=== PATIENT | male | born 1970 | race Caucasian/White ===

== ENCOUNTER 2020-07-21 10:12 | Outpatient (RCR) | payer BC, SELFPAY ==
[2020-07-21] MEDS: COVID-19 VACC, MRNA(PFIZER)/PF 30 MCG/0.3 ML SYRINGE IM (07:03)
[2020-08-11] MEDS: COVID-19 VACC, MRNA(PFIZER)/PF 30 MCG/0.3 ML SYRINGE IM (07:04)
== END 2020-07-21 23:59 ==
LOC: IMMUN 10:12
PROVIDERS: PCP Family Medicine; Visit Provider Family Medicine
DX: Z23 Encounter for immunization (principal)
CPT/HCPCS: 0001A; 0002A; 91300

== ENCOUNTER 2020-10-23 12:58 | Emergency (ER) | payer BC, SELFPAY ==
[2020-10-23 13:00] VITALS: BP 182/96; PULSE 101; RESP 18; TEMP 36.8; O2SAT 100
[2020-10-23 13:11] LABS: Bedside Glucose 140 mg/dL (70-110)
--- NOTE | 2020-10-23 13:27 | EKG12_ITS ---
Test Reason : Blood Pressure : / mmHG Vent. Rate : 098 BPM Atrial Rate : 098 BPM P-R Int : 140 ms QRS Dur : 086 ms QT Int : 362 ms P-R-T Axes : 058 075 -01 degrees QTc Int : 462 ms Normal sinus rhythm Inferior-posterior infarct , age undetermined Abnormal ECG Confirmed by FRANCINE ROMERO, REFUGIO ([id number]), script editor VALERIA BILLS ([id number]) on 10/24/2020 11:22:16 AM Referred By: SIDDHARTH Confirmed By:REFUGIO ESCAMILLA MD
--- NOTE | 2020-10-23 13:27 | RAD_ITS ---
STUDY: X-RAY CHEST REASON FOR EXAM: Male, 50 years old. Chest pain TECHNIQUE: Single frontal view of the chest. COMPARISON: None. FINDINGS: The lungs are clear and expanded. There is no demonstrated pleural abnormality. Normal size heart. Normal mediastinum and darrick. Normal visualized pulmonary arteries. Normal visualized aortic arch and descending thoracic aorta. Normal visualized thoracic spine. Normal visualized ribs, clavicles, and shoulders. There is no demonstrated abnormality of the visualized soft tissue structures of the upper abdomen. RAD/Chest 1 View (Portable) IMPRESSION: Normal x-ray examination of the chest. Electronically Signed: Sandrita Gonzalez MD at 14:37 EDT Tel , Service support ,
--- NOTE | 2020-10-23 13:28 | EDS_ITS ---
HPI History of Present Illness Chief Complaint: Neuro S/Sx Informant: patient and PCP Onset/Context/Timing Onset: Today Context: Sudden Onset Current Severity: Mild Maximum Severity: Moderate Narrative Narrative: Patient was sitting at lunch with his PCP today, when he suddenly felt his heart racing, he can feel it in his neck, as well as a little shortness of breath and lightheadedness, followed by tingling all over his body. Denies near syncopal or syncope. No chest pain although he has had mild intermittent left central chest discomfort off and on for the past week, it has lasted minutes at a time. He had that discomfort 5 or 6 years ago or so, when he lived in [place] and followed up with a specialist and had some heart testing that was negative. He denies any recent illness or long trips/travel, hospitalization, or surgery. No history of DVT or PE. He is adopted and family history is unknown. [facility] Medical History Hypertension Home Medications lisinopril 10 mg PO DAILY 10/23/20 [History Last Taken Unknown] Allergy/AdvReac Type Severity Reaction Status Date / Time No Known Allergies Allergy Verified 10/23/20 13:04 adopted Surgical History (Updated 10/23/20 @ 13:04 by Kristi Jain) H/O eye surgery Social History Smoking Status: Never smoker ROS ROS ED Constitutional Constitutional ED: Denies chills or fever(s) Eyes Eyes: Denies change in vision or diplopia ENT ENT ED: Denies rhinorrhea or sore throat Cardiovascular Cardiovascular: Denies chest pain or palpitations Respiratory/Chest Respiratory/Chest: Denies cough or dyspnea Gastrointestinal Gastrointestinal: Denies abdominal pain, diarrhea, nausea or vomiting Genitourinary Genitourinary ED: Denies dysuria or hematuria Musculoskeletal Musculoskeletal: Denies back pain or neck pain Integumentary Denies abscess or rash Neurologic Neurologic: Denies headache(s), paresthesias or weakness Psychiatric Psychiatric: Denies anxiety or suicidal thoughts EXAM Physical Exam Const Vital Signs: 10/23/20 13:00 10/23/20 14:32 10/23/20 15:16 Temperature 98.3 F Temperature Source Temporal Pulse Rate 101 H 92 83 Respiratory Rate 18 17 15 Blood Pressure 182/96 H 153/82 H 148/85 H Blood Pressure Mean 124 105 106 Pulse Ox 100 98 98 Oxygen Delivery Method Room Air Room Air Room Air Positive well nourished and well developed General Appearance ED: well developed and NAD HEENT Reports moist mucous membranes normocephalic and atraumatic Eyes PERRL and EOMs intact bilaterally Neck full ROM and supple Resp normal respiratory effort and clear to auscultation bilaterally Cardio regular rate, regular rhythm, S1 normal heart sound, S2 normal heart sound and no murmurs Cardio Narrative: mild tachycardia GI non-tender and non-distended Auscultation: normoactive bowel sounds Palpation: soft Back/Spine no CVA tenderness General Back: other FROM Extremity normal to inspection and no calf tenderness General Extremety ED: Negative for edema, pulses abnormal or tenderness General Extremity: Negative for edema or pulses abnormal Neuro oriented x3, CN's II-XII intact bilaterally and no sensory deficits noted Sensorium / Orientation: awake and alert Motor Exam: strength 5/5 throughout Psych mental status grossly normal and thought process normal Mood & Affect: anxious Skin no rashes or lesions noted and no wounds MDM MDM MDM Narrative Medical decision making narrative: During the patient's observation in the emergency department, he developed no recurrent symptoms and felt better with regards to his tingling all over. His work-up is negative as below, except for mild elevation of his creatinine of 1.41. His troponin and D-dimer are both negative. His EKG showed some inverted T waves inferiorly, but no acute injury pattern. Patient is very anxious, this might of explained his elevated blood pressure, or alternatively, his elevated blood pressure caused all this due to spiking. On reevaluation is 153/82, he does not need emergent treatment for that especially since he is asymptomatic. He did start his lisinopril 2 days ago, so certainly there is no failure of that at this time. I am not concerned about acute coronary syndrome here, I do not think he needs a delta troponin, he is comfortable going home and following up for an outpatient stress test which his doctor discussed with him as well, and I think it would be reasonable to get a Holter monitor for him. We do have them available, discussed with cardiology for approval, and he will follow-up. Lab Data Attestation: I reviewed the patient's lab results. Labs: Laboratory Results - last 24 hr 10/23/20 10/23/20 10/23/20 13:05 13:05 13:06 WBC 10.6 RBC 5.27 Hgb 15.5 Hct 46.9 MCV 89.0 MCH 29.4 MCHC 33.0 RDW Std Deviation 43.0 RDW Coeff of Reina 13.1 Plt Count 317 MPV 10.5 Immature Gran % (Auto) 0.500 Neut % (Auto) 70.8 H Lymph % (Auto) 21.8 [place] % (Auto) 5.7 Eos % (Auto) 0.7 Baso % (Auto) 0.5 Absolute Neuts (auto) 7.5 Absolute Lymphs (auto) 2.31 Nucleated RBC % 0 D-Dimer Quant (PE/DVT) Sodium 139 Potassium 3.5 Chloride 103 Carbon Dioxide 26.0 Anion Gap 10 BUN 22 H Creatinine 1.41 H Estim Creat Clear Calc 55.93 Est GFR (MDRD) Af Amer 68 Est GFR (MDRD) Non-Af 56 L BUN/Creatinine Ratio 15.6 Glucose 162 H Calcium 9.0 Troponin I < 0.015 POC Glucose 140 H 10/23/20 13:48 WBC RBC Hgb Hct MCV MCH MCHC RDW Std Deviation RDW Coeff of Reina Plt Count MPV Immature Gran % (Auto) Neut % (Auto) Lymph % (Auto) [place] % (Auto) Eos % (Auto) Baso % (Auto) Absolute Neuts (auto) Absolute Lymphs (auto) Nucleated RBC % D-Dimer Quant (PE/DVT) <= 0.27 Sodium Potassium Chloride Carbon Dioxide Anion Gap BUN Creatinine Estim Creat Clear Calc Est GFR (MDRD) Af Amer Est GFR (MDRD) Non-Af BUN/Creatinine Ratio Glucose Calcium Troponin I POC Glucose Radiography Chest X-Ray - ED: 1 View, Read by ED Physician, Normal and No Acute Disease Diagnostic Testing: Radiology Impression Chest X-Ray 10/23/20 13:27 IMPRESSION: Normal x-ray examination of the chest. Electronically Signed: Sandrita Gonzalez MD at 14:37 EDT Tel , Service support , EKG Initial EKG: Attestation: I personally reviewed and interpreted this EKG as follows: Interpretation: Sinus Rhythm, No Acute Injury Pattern and Inverted T-Waves (inferiorly; no ST seg deviations) Prior EKG tracings: not available for review Discharge Plan Triage Chief Complaint: Neuro S/Sx ED Provider: Jaron Lindo Dx/Rx/DC Orders Clinical Impression: Intermittent left-sided chest pain, Palpitations, Episode of hypertension Instructions: ED Chest Pain, Noncardiac, ED Palpitations Prescriptions: No Action lisinopril 10 mg Tablet 10 mg PO DAILY RF: 0 Primary Care Provider: Shadi Gutierrez Referrals: Shadi Gutierrez DO [Primary Care Provider] - Abram Ramsey MD [STAFF PHYSICIAN] - (call for follow up) Disposition Disposition: Home, self care
[2020-10-23 13:46] LABS: Absolute Lymphocyte Count 2.31 X10^3/uL (0.83-4.51); Absolute Neutrophil Count 7.5 X10^3/uL (2.0-7.7); Basophil# 0.05 X10^3/uL; Basophil% 0.5 % (0-1); Eosinophil# 0.07 X10^3/uL; Eosinophils% 0.7 % (0-5); Hematocrit 46.9 % (40-54); Hemoglobin 15.5 g/dL (13.0-16.5); Lymphocyte # 2.31 X10^3/ul (0.83-4.51); Lymphocyte % 21.8 % (19-41); Mean Corpuscular Hgb 29.4 pg (27.0-32.0); Mean Platelet Vol. 10.5 fl (6.2-12.0); Monocyte% 5.7 % (0-10); NRBC Flagged by Analyzer 0 % (0-5); Neutrophil # 7.51 X10^3/uL (2.7-7.7); Neutrophil % 70.8 % (47-70); Platelet Count 317 K/mm3 (150-450); RBC Distribution Width CV 13.1 % (11.6-14.6); Red Blood Count 5.27 M/mm3 (4.6-6.2); White Blood Count 10.6 K/mm3 (4.4-11.0)
[2020-10-23 14:01] LABS: Anion Gap 10 (5-15); BUN 22 mg/dL (7-18); BUN/Creat Ratio 15.6 RATIO (10-20); Chloride 103 mmol/L (98-107); Creatinine, Serum 1.41 mg/dL (0.70-1.30); EST Glomerular Filtration Rate 56 mL/min (>60); Est Glom Filt Rate - Afr Amer 68 mL/min (>60); Estimated Creatinine Clearance 55.93 ml/min; Glucose 162 mg/dL (74-106); Potassium 3.5 mmol/L (3.5-5.1); Sodium Level 139 mmol/L (136-145)
[2020-10-23 14:06] LABS: D-Dimer Quantitative (DVT/PE) <= 0.27 FEU/ug/m (0.27-0.49)
[2020-10-23 14:32] VITALS: BP 153/82; PULSE 92; RESP 17; O2SAT 98
[2020-10-23 15:16] VITALS: BP 148/85; PULSE 83; RESP 15; O2SAT 98
[2020-10-23 15:36] VITALS: BP 151/86; PULSE 83; RESP 18; O2SAT 96
== END 2020-10-23 15:37 | disposition home or self-care (01) ==
PROVIDERS: Emergency Provider Emergency Medicine; PCP Family Medicine
DX: R07.89 Other chest pain (principal); R00.2 Palpitations; I10 Essential (primary) hypertension; R06.00 Dyspnea, unspecified; R42 Dizziness and giddiness; R20.2 Paresthesia of skin; Z79.899 Other long term (current) drug therapy
CPT/HCPCS: 71045; 80048; 82962; 84484; 85025; 85379; 93005; 99284; A4216

== ENCOUNTER → 2020-10-23 15:19 | Outpatient (CLI) | payer BC, SELFPAY | PROVIDERS: PCP Family Medicine; Visit Provider Specialist | DX: R00.2 Palpitations (principal); R07.89 Other chest pain; I10 Essential (primary) hypertension; R06.00 Dyspnea, unspecified; R42 Dizziness and giddiness; R20.2 Paresthesia of skin; Z79.899 Other long term (current) drug therapy | CPT/HCPCS: 71045; 80048; 82962; 84484; 85025; 85379; 93005; 93225; 93226; 99284; A4216 ==

== ENCOUNTER → 2020-11-14 09:47 | Outpatient (CLI) | payer BC, SELFPAY ==
[2020-11-02 12:59] VITALS: BMI 28.7
--- NOTE | 2020-11-14 09:50 | ECHOCS_ITS ---
Reason For Study: Arrhythmia Procedure This was a 2D Doppler, Color Flow transthoracic echocardiogram. The study was technically difficult. Contrast injection was performed. Exam performed in department. Left Ventricle Normal LV size. Left ventricular systolic function is normal. The estimated ejection fraction is 65 %. No regional wall motion abnormalities noted. Right Ventricle Normal RV size. Normal systolic function. Atria Normal left atrium. Normal right atrium. Mitral Valve Normal mitral valve. Tricuspid Valve Normal tricuspid valve. Mild (1+) tricuspid valve insufficiency. Pulmonary artery systolic pressure is 34 mmHg. Aortic Valve Normal aortic valve. Pulmonic Valve Normal pulmonic valve. Great Vessels Normal aortic root. The pulmonary artery is normal size. Normal inferior vena cava. Pericardium/Pleural No pericardial effusion. Medication 22 gauge I.V. with prn adaptor inserted into right arm. Diluted definity 2ml given slow IV push to enhance endocardial definition. MMode/2D Measurements & Calculations LVIDd: 4.0 cm IVSd: 0.90 cm LA dimension: 2.5 cm LVIDs: 2.5 cm LVPWd: 1.0 cm FS: 38.2 % LAV(MOD-bp): 39.9 ml LA A4 area: 15.6 cm2 RA A4 area: 12.5 cm2 LAV(MOD-bp) Indexed: 21.0 ml/m2 LAV(MOD-sp2): 36.4 ml LAV(MOD-sp4): 42.6 ml Time Measurements MV dec time: 0.25 sec Doppler Measurements & Calculations MV E max jorge: 71.8 cm/sec Lat Peak E' Jorge: 13.3 cm/sec Med Peak E' Jorge: 7.8 cm/sec MV A max jorge: 65.6 cm/sec E/E' lat: 5.4 E/E' med: 9.2 MV E/A: 1.1 MV V2 max: 71.7 cm/sec MV P1/2t max jorge: 71.2 cm/sec Ao V2 max: 118.2 cm/sec MV max P.1 mmHg MV P1/2t: 98.1 msec Ao max P.6 mmHg MV V2 mean: 36.3 cm/sec MV dec slope: 212.5 cm/sec2 MV mean P.64 mmHg MV V2 VTI: 27.7 cm MVA(P1/2t): 2.2 cm2 LV V1 max: 99.7 cm/sec PA V2 max: 79.9 cm/sec TR max jorge: 265.4 cm/sec LV V1 max P.0 mmHg TR max P.2 mmHg ECHO/Echo Complete W/ Contrast Interpretation Summary Normal LV size. Left ventricular systolic function is normal. The estimated ejection fraction is 65 %. Pulmonary artery systolic pressure is 34 mmHg. Contrast injection was performed. Ordering Physician: Abram Ramsey Referring Physician: Abram Ramsey Performed By: Nelson Loza RCS
== END ==
PROVIDERS: PCP Family Medicine; Referring Provider Internal Medicine Cardiovascular Disease; Visit Provider Internal Medicine Cardiovascular Disease
DX: R06.02 Shortness of breath (principal)
CPT/HCPCS: 93306; Q9957; A4216; C8929; J3490

== ENCOUNTER → 2020-12-01 11:59 | Outpatient (CLI) | payer BC, SELFPAY ==
[2020-11-02 12:59] VITALS: BMI 28.7
[2020-12-01 13:03] LABS: Anion Gap 7 (5-15); BUN 20 mg/dL (7-18); BUN/Creat Ratio 15.6 RATIO (10-20); Calcium,Total 8.8 mg/dL (8.5-10.1); Chloride 105 mmol/L (98-107); Creatinine, Serum 1.28 mg/dL (0.70-1.30); EST Glomerular Filtration Rate 63 mL/min (>60); Est Glom Filt Rate - Afr Amer 76 mL/min (>60); Glucose 96 mg/dL (74-106); Potassium 4.4 mmol/L (3.5-5.1); Sodium Level 140 mmol/L (136-145)
== END ==
PROVIDERS: PCP Family Medicine; Visit Provider Internal Medicine Cardiovascular Disease
DX: I10 Essential (primary) hypertension (principal)
CPT/HCPCS: 36415; 80048

== ENCOUNTER 2020-12-14 07:43 | Emergency (ER) | payer BC, SELFPAY ==
[2020-11-02 12:59] VITALS: BMI 28.7
[2020-12-14 07:44] VITALS: BP 142/76; PULSE 89; RESP 14; TEMP 36; O2SAT 99; BMI 28.6
--- NOTE | 2020-12-14 07:56 | EKG12_ITS ---
Test Reason : DIZZINESS Blood Pressure : / mmHG Vent. Rate : 077 BPM Atrial Rate : 077 BPM P-R Int : 150 ms QRS Dur : 084 ms QT Int : 410 ms P-R-T Axes : 051 059 -02 degrees QTc Int : 463 ms Normal sinus rhythm Inferior-posterior infarct , age undetermined Abnormal ECG Confirmed by HAYLEY ROMERO, LIDIA ([id number]), industrial editor VALERIA BILLS ([id number]) on 12/16/2020 9:29:38 AM Referred By: ELLEN Confirmed By:JASON HARDY MD
--- NOTE | 2020-12-14 07:56 | CT_ITS ---
STUDY: CT BRAIN WITHOUT CONTRAST REASON FOR EXAM: Male, 50 years old. Headache and Dizziness RADIATION DOSAGE (If Supplied By Facility): CTDIvol = ( 44.99 ) mGy, DLP = ( 829.85 ) mGycm TECHNIQUE: Transaxial CT imaging of the brain was performed without administration of intravenous contrast material. Individualized dose optimization techniques were used for this CT. COMPARISON: No relevant priors. FINDINGS: Normal soft tissue structures. Normal calvarium. Normal size ventricles and extra-axial spaces for the patient''s age. Normal white matter tracts of the cerebral hemispheres. Normal basal ganglia and thalami. Normal brainstem. Normal cerebellum. There is no intracranial hemorrhage. There are no findings of an acute ischemic infarction. Normal visualized paranasal sinuses. CT/Brain/Head without Contrast IMPRESSION: Normal unenhanced CT scan of the brain. Electronically Signed: Evens Potter MD at 8:24 EDT , Service support ,
--- NOTE | 2020-12-14 07:58 | EX.ED.DYSGE1 ---
HPI History of Present Illness Chief Complaint: Dizziness Informant: patient and EMS Narrative Narrative: 50-year-old male presenting via EMS with chief complaint of dizziness. Patient states that about 10 till 7 he was sitting in his chair and turned his head to the right and then he began to feel his heart race and had a sensation of dizziness and a warm sensation on the right side of his neck. When asked what dizziness meant he states lightheaded but then states if he keeps his eyes open the room starts to spin. He had an episode of vomiting. He checked his blood pressure several times and stated that his heart rate was 113. He had not yet taken his morning medications. He reports that he called 911 and then crawled to the door to open it. He states he had more vomiting once arriving in the emergency department. Symptoms are worse with movement. He is never experienced this before. He notes generalized weakness. He endorses bilateral tinnitus. Recent nasal congestion due to allergies. He notes an occipital headache. [facility] Medical History Essential (primary) hypertension Obesity Home Medications amlodipine 5 mg tablet 5 mg PO DAILY #90 tab 11/02/20 [Rx Last Taken Unknown] metoprolol succinate 50 mg tablet,extended release 24 hr 50 mg PO DAILY #90 tab 11/02/20 [Rx Last Taken Unknown] diazepam 5 mg PO Q8 PRN #10 tab 12/14/20 [Rx Last Taken Unknown] ondansetron 4 mg PO Q6H PRN PRN #10 tab 12/14/20 [Rx Last Taken Unknown] Allergy/AdvReac Type Severity Reaction Status Date / Time No Known Allergies Allergy Verified 12/14/20 07:47 Family History Other Adopted Surgical History H/O eye surgery Social History Smoking Status: Never smoker alcohol intake: never ROS ROS ED Constitutional Constitutional ED: Denies chills or weight loss Eyes Eyes: Denies change in vision or diplopia ENT ENT ED: Reports other Details: Tinnitus ; Denies ear pain, rhinorrhea or sore throat Cardiovascular Cardiovascular: Reports palpitations and racing heartbeat; Denies chest pain or orthopnea Respiratory/Chest Respiratory/Chest: Denies cough, dyspnea or orthopnea Gastrointestinal Gastrointestinal: Reports nausea and vomiting; Denies abdominal pain or diarrhea Genitourinary Genitourinary ED: Denies dysuria, hematuria or urinary frequency Musculoskeletal Musculoskeletal: Denies arthralgias or myalgias Integumentary Denies abscess or rash Neurologic Neurologic: Reports headache(s) and other Details: Dizziness/lightheaded ; Denies weakness Psychiatric Psychiatric: Denies anxiety, depression, suicidal ideation or suicidal thoughts Endocrine Endocrinology: Denies polydipsia, polyphagia or polyuria Allergic/Immunologic Allergic/Immunologic ED: Denies mouth swelling, tongue swelling or urticaria EXAM Physical Exam Const Vital Signs: 12/14/20 07:44 12/14/20 07:49 12/14/20 09:00 Temperature 96.8 F L Temperature Source Temporal Pulse Rate 89 75 Respiratory Rate 14 18 Respiratory Effort Normal Non-Labored Respiratory Pattern Normal Blood Pressure 142/76 H 160/93 H Blood Pressure Mean 98 115 Pulse Ox 99 97 Oxygen Delivery Method Room Air Room Air 12/14/20 10:10 Temperature Temperature Source Pulse Rate 69 Respiratory Rate 14 Respiratory Effort Respiratory Pattern Blood Pressure 136/82 H Blood Pressure Mean 100 Pulse Ox 97 Oxygen Delivery Method Room Air Positive well nourished and well developed General Appearance ED: well developed HEENT Reports normocephalic, head/scalp atraumatic and moist mucous membranes HEENT Narrative: No nystagmus is noted. Eyes PERRL and EOMs intact bilaterally Neck no lymphadenopathy, supple and no JVD Resp normal respiratory effort and clear to auscultation bilaterally Cardio regular rate, regular rhythm and no murmurs GI normal to inspection, nondistended, normoactive bowel sounds and non-tender Palpation: soft Back/Spine no CVA tenderness and normal ROM Extremity normal to inspection General Extremety ED: Negative for edema General Extremity: Negative for edema Neuro oriented x3, CN's II-XII intact bilaterally and no sensory deficits noted Neuro Narrative: Patient symptoms are worse when he keeps his eyes open. They are worse when he turns his head in all directions. Sensorium / Orientation: alert Motor Exam: strength 5/5 throughout Psych mental status grossly normal Mood & Affect: Negative for depressed or tearful Skin no rashes or lesions noted and no wounds MDM MDM MDM Narrative Medical decision making narrative: Patient received IV fluids Zofran and Valium. Basic blood work EKG and head CT was obtained. CT was negative. Patient is doing much better. He still notes the sensation of warmth and increased heart rate and dizziness when he turns his head to the right. Pain this is most likely peripheral vertigo. When he does turn his head to the right his heart rate stays in the 60s in the 70s. I'll write the patient to have Valium. I will discuss Lab Data Labs: Laboratory Results - last 24 hr 12/14/20 12/14/20 07:50 07:50 WBC 12.3 H RBC 5.01 Hgb 14.7 Hct 44.3 MCV 88.4 MCH 29.3 MCHC 33.2 RDW Std Deviation 41.1 RDW Coeff of Reina 12.6 Plt Count 330 MPV 10.6 Immature Gran % (Auto) 0.300 Neut % (Auto) 54.9 Lymph % (Auto) 33.6 [place] % (Auto) 8.3 Eos % (Auto) 2.6 Baso % (Auto) 0.3 Absolute Neuts (auto) 6.7 Absolute Lymphs (auto) 4.12 Nucleated RBC % 0 Sodium 137 Potassium 3.7 Chloride 103 Carbon Dioxide 23.0 Anion Gap 11 BUN 24 H Creatinine 1.30 Estim Creat Clear Calc 60.66 Est GFR (MDRD) Af Amer 75 Est GFR (MDRD) Non-Af 62 BUN/Creatinine Ratio 18.5 Glucose 151 H Calcium 9.1 Troponin I High Sens 7.1 Radiography Diagnostic Testing: Radiology Impression Brain CT 12/14/20 07:56 IMPRESSION: Normal unenhanced CT scan of the brain. Electronically Signed: Evens Potter MD at 8:24 EDT , Service support , EKG Initial EKG: Attestation: I personally reviewed and interpreted this EKG as follows: Comments: Normal sinus rhythm with a ventricular rate of 77 bpm. No concerning features of ACS or ectopy. Discharge Plan Triage Chief Complaint: Dizziness ED Provider: Kurt Nash Dx/Rx/DC Orders Clinical Impression: Vertigo Instructions: ED BPV Vertigo Prescriptions: New ondansetron [ondansetron] 4 MG tablet 4 mg PO Q6H PRN PRN (Reason: Nausea) Qty: 10 RF: 0 diazepam [diazepam] 5 MG tablet 5 mg PO Q8 PRN (Reason: Vertigo) Qty: 10 RF: 0 No Action amlodipine 5 mg tablet 5 mg PO DAILY Qty: 90 RF: 3 metoprolol succinate [Toprol XL] 50 mg tablet extended release 24 hr 50 mg PO DAILY Qty: 90 RF: 3 Primary Care Provider: Shadi Gutierrez Referrals: Shadi Gutierrez DO [Primary Care Provider] - 3-5 Days Disposition Disposition: Home, Self Care
[2020-12-14 08:04] LABS: Absolute Lymphocyte Count 4.12 X10^3/uL (0.83-4.51); Absolute Neutrophil Count 6.7 X10^3/uL (2.0-7.7); Basophil# 0.04 X10^3/uL; Basophil% 0.3 % (0-1); Eosinophil# 0.32 X10^3/uL; Eosinophils% 2.6 % (0-5); Hematocrit 44.3 % (40-54); Hemoglobin 14.7 g/dL (13.0-16.5); Lymphocyte # 4.12 X10^3/ul (0.83-4.51); Lymphocyte % 33.6 % (19-41); Mean Corp Hgb Conc 33.2 g/dL (32-36); Mean Corpuscular Hgb 29.3 pg (27.0-32.0); Mean Corpuscular Volume 88.4 fL (80-94); Mean Platelet Vol. 10.6 fl (6.2-12.0); Monocyte# 1.02 X10^3/uL; Monocyte% 8.3 % (0-10); NRBC Flagged by Analyzer 0 % (0-5); Neutrophil # 6.74 X10^3/uL (2.7-7.7); Neutrophil % 54.9 % (47-70); Platelet Count 330 K/mm3 (150-450); RBC Distribution Width CV 12.6 % (11.6-14.6); RBC Distribution Width SD 41.1 fl (35.1-43.9); Red Blood Count 5.01 M/mm3 (4.6-6.2); White Blood Count 12.3 K/mm3 (4.4-11.0)
[2020-12-14] MEDS: diazePAM 5 MG Tablet PO (08:07)
[2020-12-14] MEDS: Ondansetron 4 MG/2 ML Vial IV (08:08)
[2020-12-14] MEDS: 0.9% Normal Saline 1,000 ML 1000 ML IV (08:08)
[2020-12-14 08:22] LABS: Anion Gap 11 (5-15); BUN 24 mg/dL (7-18); BUN/Creat Ratio 18.5 RATIO (10-20); Calcium,Total 9.1 mg/dL (8.5-10.1); Chloride 103 mmol/L (98-107); EST Glomerular Filtration Rate 62 mL/min (>60); Est Glom Filt Rate - Afr Amer 75 mL/min (>60); Estimated Creatinine Clearance 60.66 ml/min; Glucose 151 mg/dL (74-106); Potassium 3.7 mmol/L (3.5-5.1); Sodium Level 137 mmol/L (136-145); Troponin-I HS 7.1 pg/mL (3.0-78.5)
[2020-12-14 09:00] VITALS: BP 160/93; PULSE 75; RESP 18; O2SAT 97
[2020-12-14 10:10] VITALS: BP 136/82; PULSE 69; RESP 14; O2SAT 97
[2020-12-14 10:33] VITALS: BP 135/74; PULSE 72; RESP 16; O2SAT 97
== END 2020-12-14 10:34 | disposition home or self-care (01) ==
PROVIDERS: Emergency Provider Emergency Medicine; PCP Family Medicine
DX: R42 Dizziness and giddiness (principal); R51.9 Headache, unspecified; I10 Essential (primary) hypertension; Z79.899 Other long term (current) drug therapy
CPT/HCPCS: 70450; 80048; 84484; 85025; 93005; 96361; 96374; 99285; J7030; A4216; J2405

== ENCOUNTER → 2021-03-20 11:01 | Outpatient (CLI) | payer BC, SELFPAY | PROVIDERS: PCP Family Medicine; Referring Provider Nurse Practitioner Family; Visit Provider Nurse Practitioner Family | DX: R42 Dizziness and giddiness (principal); R00.2 Palpitations; R07.9 Chest pain, unspecified | CPT/HCPCS: 93225; 93226 ==

== ENCOUNTER → 2021-04-12 06:17 | Outpatient (CLI) | payer BC, SELFPAY ==
--- NOTE | 2021-04-12 17:11 | STRESSREP ---
Stress Test Report Exercise myocardial perfusion stress test. 50-year-old man with a history of fatigue and chest pain. Stress protocol: Resting EKG demonstrates normal sinus rhythm with a rate of 65 bpm normal intervals are noted. Resting blood pressure is 148/88 mmHg. The patient exercised according to regular Antolin protocol for total duration of 11 minutes. Patient completed 2 minutes into stage IV of the Antolin protocol. The maximum heart rate attained was 148 bpm which was 87% of maximum predicted heart rate the maximum workload was 13.4 metabolic equivalents. At rest there were no ST or T wave changes noted to suggest ischemia at peak exercise upsloping ST depression less than 1 mm was noted in leads II and aVF and nonspecific ST changes noted in lead III. No clinical angina was noted the test was terminated due to the target heart rate being achieved. The peak blood pressure was 182/80 mmHg. Myocardial perfusion protocol. 11.8 mCi of technetium 99m sestamibi was injected at rest. The patient exercised according to regular Antolin protocol for total duration of 11 minutes completing 2 minutes into stage IV of the Antolin protocol. At the peak exercise 33.9 mCi of technetium 99m sestamibi was injected stress images were obtained stress and rest images were reconstructed and compared in the short axis vertical long and horizontal long axis. Gated images were also obtained. Perfusion SPECT analysis: Review of the stress images demonstrate normal uptake of tracer noted in all areas of the myocardium. The resting images similarly demonstrate normal uptake of tracer noted in all areas of the myocardium. No reversibility is noted to suggest ischemia and no previous infarct is noted. Gated SPECT analysis: The gated ejection fraction is 77%. Conclusion: Normal exercise myocardial perfusion stress test at a high workload. Excellent functional capacity. No ischemia noted. No arrhythmias noted.
== END ==
PROVIDERS: PCP Family Medicine; Referring Provider Nurse Practitioner Family; Visit Provider Nurse Practitioner Family
DX: R07.9 Chest pain, unspecified (principal); R00.2 Palpitations; R53.83 Other fatigue
CPT/HCPCS: 78452; 93017; A9500; A4216